=== PATIENT | female | born 1995 | race Caucasian/White ===

== ENCOUNTER 2023-05-02 09:36 | Emergency (ER) | payer OTHER, SELFPAY ==
[2023-05-02 09:58] VITALS: BP 140/84; PULSE 95; RESP 20; TEMP 37.1; O2SAT 100; BMI 52.5
[2023-05-02 10:50] LABS: IDNOW Serial# 58CA691E; Strep A Nucleic Acid Positive (Negative)
--- NOTE | 2023-05-02 10:56 | ED_ITS ---
HPI - General Adult General Chief complaint: Upper Respiratory Symptoms Stated complaint: Sore throat Time Seen by Provider: 05/02/23 10:55 Source: patient Mode of arrival: ambulatory Limitations: no limitations History of Present Illness HPI narrative: Patient is a 28 year old assigned female at with no reported medical history presenting to the emergency department today with a sore throat. Patient states that over the last 6 days she has had a sore throat. Patient denies any dizziness, lightheadedness, abdominal pain, nausea, vomiting, fever, chills, blurry vision, double vision, loss of vision, chest pain, difficulty breathing, shortness of breath, back pain, night sweats, pain with urination, increased urinary frequency, increased urinary urgency, blood in her urine or stool, syncope or a near syncopal episode, recent trauma or falls, bowel incontinence, bladder incontinence, bowel retention, bladder retention, or any other complaints at this time. Onset (ago): day(s) (6) Severity: mild Severity scale (1-10): 3 Quality: aching Pain Consistency: constant Relieving factors: none Exacerbating factors: none Associated symptoms: denies other symptoms Treatments prior to arrival: none Related Data Previous Rx's Medication Instructions Recorded penicillin V potassium 500 mg 500 mg PO BID 10 days #20 tabs 05/02/23 tablet Allergies Allergy/AdvReac Type Severity Reaction Status Date / Time SEAFOOD Allergy Unknown RASH Uncoded 05/02/23 10:00 Review of Systems Constitutional: Constitutional: Reports no additional constitutional complaints, Denies chills, Denies fever(s) and Denies night sweats Eyes: Eyes: Reports no additional eye complaints, Denies blurry vision, Denies change in vision, Denies diplopia, Denies eye discharge, Denies loss of vision and Denies eye pain ENT: Denies dizziness and Reports sore throat Cardiovascular: Cardiovascular: Reports no additional cardiovascular complaints, Denies chest pain, Denies lightheadedness, Denies Loss of Consciousness and Denies dyspnea Respiratory: Respiratory: Reports no additional respiratory complaints and Denies dyspnea Gastrointestinal: Gastrointestinal: Reports no additional gastrointestinal complaints, Denies abdominal pain, Denies melena, Denies hematochezia, Denies change in bowel habits and Denies change in stool character Genitourinary: Genitourinary: Denies hematuria, Denies urinary frequency, Denies dysuria, Denies urinary incontinence, Denies urinary hesitancy and Denies urinary urgency Musculoskeletal: Musculoskeletal: Reports no additional musculoskeletal complaints, Denies numbness and Denies tingling Neurologic: Denies dizziness, Denies loss of vision, Denies numbness and Denies tingling Psychiatric: Psychiatric: Reports no additional psychiatric complaints Endocrine: Endocrine: Reports no additional endocrine complaints Hematologic/Lymphatic: Hematologic/Lymphatic: Reports no additional hematologic/lymphatic complaints Allergic/Immunologic: Allergic/Immunologic: Reports no additional allergic/immunologic complaints [facility] Past Medical History Attestation statement: The following information was validated with the patient. Source: old records reviewed and nursing notes reviewed Social History Social History Advance Directives: No Advance Directives Information Provided: No Physical Exam ED Vital Signs: Vital Signs - 24 hr 05/02/23 09:58 Temperature 98.8 F Pulse Rate 95 Respiratory Rate 20 Blood Pressure 140/84 H Pulse Oximetry 100 Oxygen Delivery Method Room Air BMI result Body Mass Index 52.5 Const General: cooperative, no acute distress, alert and awake Nutritional Appearance: well nourished Orientation/consciousness: patient oriented x3 Limitations: no limitations HENMT Head: Yes normal to inspection and Yes atraumatic Ears: hearing grossly normal bilaterally and external ears normal General nose exam: Normal external nose present, no nasal discharge noted and no epistaxis Face and sinus: Yes normal facial exam, No abrasion and No laceration Mouth: Normal oral and palatal mucosa present, no drooling and no muffled voice Throat: Yes abnormal tonsil (bilateral erythema and exudates) Eyes General: appearance normal, both eyes and all related structures Periorbital: periorbital findings normal Eyelids: Yes eyelids normal Conjunctivae: conjunctivae normal Pupils: Equal, round and reactive pupils present EOM: EOMs intact bilaterally Neck Neck: Yes normal visual inspection, Yes full ROM and Yes no lymphadenopathy Chest Chest palpation & inspection: normal inspection of the chest Resp Effort & Inspection: normal respiratory effort and able to speak in complete sentences GI Inspection: Yes normal to inspection Neuro General: patient oriented x3 and moves all extremities Cranial nerves: Yes Equal, round and reactive pupils present Cognition (Neuro): normal cognition Motor exam (neuro): 5/5 motor strength present throughout Sensory Exam: Normal double simultaneous stimulation for sensation Coordination: [id number] test normal Extrem General: Yes normal to inspection, Yes full ROM and Yes capillary refill normal Psych Appearance: grossly normal Mental Status: mental status grossly normal Affect: normal affect Attitude: cooperative Thought process: Normal thought process present Thought content: Normal thought content present Insight: Good insight present (Psych) Medical Decision Making Medical Decision Making [facility] Narrative: Patient is a 28 year old assigned female at with no reported medical history presenting to the emergency department today with a sore throat. Patient's physical exam was as noted in the physical exam portion of this note. Patient's COVID-19, influenza, and RSV tests were negative. Patient's strep test was positive. I explained my physical exam findings as well as all test results to the patient. I answered all questions asked by the patient. I stressed the importance of the patient taking her medication as prescribed. I stressed the importance of the patient following up with her primary care provider. I stressed the importance of the patient returning to the emergency department immediately if her symptoms were to worsen or if she were to develop any dizziness, shortness of breath, difficulty breathing, chest pain, blurry vision, loss of vision, nausea, vomiting, abdominal pain, fever, chills, back pain, or any other complaints. Patient verbalized agreement and understanding with this treatment plan and discharge. Differential Diagnosis Differential Diagnoses: The differential diagnosis associated with the presentation includes COVID-19 Influenza RSV Strep pharyngitis Pharyngitis Admission/Observation Consideration of admission/observation: Escalation of care including admission/observation considered Patient would have been admitted to the hospital had her work up had any findings where hospital admission was appropriate and her clinical presentation warranted hospital admission. Lab Data [facility] Lab Attestation statement: I reviewed the patient's lab results. My interpretation of these results are in the MDM Rationale portion of this note. Labs: Lab Results 05/02/23 Range/Units 10:38 Influenza Type A (PCR) NEGATIVE (Negative) Influenza Type B (PCR) NEGATIVE (Negative) RSV RNA Qual (PCR) NEGATIVE (Negative) SARS-CoV-2 RNA (RT-PCR) NEGATIVE (Negative) S. pyogenes GrpA OLEG Positive A (Negative) Prescription Management I considered prescription management with: Antibiotic (patient prescribed an antibiotic for strep pharyngitis) Discharge Plan Discharge Clinical Impression: Strep pharyngitis Patient Disposition: Home, Self-Care Instructions: Strep Throat (DC) Additional Instructions: Take your antibiotic as prescribed. Follow up with your primary care provider. Return to the emergency department immediately if your symptoms worsen or if you develop any dizziness, shortness of breath, difficulty breathing, chest pain, blurry vision, loss of vision, nausea, vomiting, abdominal pain, fever, chills, back pain, or any other complaints. Prescriptions: New penicillin V potassium 500 mg tablet 500 mg PO BID 10 Days Qty: 20 0RF Referrals: [facility] [place] [facility] [place]] (Call to establish and follow up with a primary care provider. If you already have a primary care provider, please follow up with them.) [facility] [place] [facility] [Provider Group] (Call to establish and follow up with a primary care provider. If you already have a primary care provider, please follow up with them.) [facility] [place] [facility] [Provider Group] (Call to establish and follow up with a primary care provider. If you already have a primary care provider, please follow up with them.) Interventions: ED Discharge Assessment Last Done: 05/02/23 11:01 Discharge Date/Time: 05/02/23 11:01 Print Language: Italian
[2023-05-02 11:21] LABS: Influenza A PCR NEGATIVE (Negative); Influenza B PCR NEGATIVE (Negative); Resp Syncy Virus RNA Qual PCR NEGATIVE (Negative); SARS COV2 PCR INHOUSE NEGATIVE (Negative)
== END 2023-05-02 11:01 | disposition home or self-care (01) ==
PROVIDERS: Physician Assistant Medical; Emergency Provider Emergency Medicine
DX: J02.0 Streptococcal pharyngitis (principal); Z11.52 Encounter for screening for COVID-19; Z20.828 Contact with and (suspected) exposure to other viral communicable diseases
CPT/HCPCS: 0241U; 87651; 99282; 99283

== ENCOUNTER 2023-09-04 11:29 | Emergency (ER) | payer OTHER, SELFPAY ==
[2023-09-04 11:32] VITALS: BP 137/72; PULSE 92; RESP 16; TEMP 37; O2SAT 97; BMI 47.2
--- NOTE | 2023-09-04 11:40 | ED_ITS ---
HPI - General Adult General Chief complaint: Allergic Reaction Stated complaint: allergic reaction ? throat swelling Time Seen by Provider: 09/04/23 13:19 Source: patient, RN notes reviewed and old records reviewed Mode of arrival: ambulatory Limitations: no limitations History of Present Illness ED Provider: Rex MATHIS narrative: 28-year-old female presents for evaluation of tightness in her throat and itching all over her body. Her symptoms started about 30 minutes prior to arrival She does have an allergy to seafood listed in her chart. 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 ? She is concerned that she may have inhaled something She reports that she feels mucus in the back of her throat but is not having any trouble breathing or swallowing She denies any history of asthma or COPD Related Data Previous Rx's ?Medication ?Instructions ?Recorded penicillin V potassium 500 mg 500 mg PO BID 10 days #20 tabs 05/02/23 tablet prednisone 20 mg tablet 40 mg (2 x 20 mg) PO DAILY #10 tabs 09/04/23 Allergies Allergy/AdvReac Type Severity Reaction Status Date / Time SEAFOOD Allergy Mild RASH Uncoded 09/04/23 11:35 Review of Systems Constitutional: Constitutional: Denies body ache(s), Denies chills and Denies fever(s) ENT: Denies sore throat Comments: Reports tightness in throat Cardiovascular: Cardiovascular: Denies dyspnea Respiratory: Respiratory: Reports cough and Denies dyspnea Gastrointestinal: Gastrointestinal: Denies abdominal pain, Denies nausea and Denies vomiting Musculoskeletal: Musculoskeletal: Denies back pain Integumentary/Breasts: Skin/Breast: Reports pruritus and Denies rash PMFSH Social History Social History Advance Directives: No Physical Exam ED Vital Signs: Vital Signs - 24 hr 09/04/23 11:32 Temperature 98.6 F Pulse Rate 92 Respiratory Rate 16 Blood Pressure 137/72 Pulse Oximetry 97 Oxygen Delivery Method Room Air BMI result Body Mass Index 47.2 Const General: healthy appearing, comfortable, no acute distress, alert and awake Nutritional Appearance: well nourished Orientation/consciousness: patient oriented x3 HENMT Other: No oral, perioral, retropharyngeal edema Head: Yes normocephalic and Yes atraumatic Throat: Yes posterior oropharynx normal Eyes Eyelids: Yes eyelids normal Conjunctivae: conjunctivae normal Sclerae: sclerae normal Corneas: corneas normal Pupils: Equal, round and reactive pupils present EOM: EOMs intact bilaterally Neck Other: No anterior neck swelling Neck: Yes full ROM Resp Other: No tracheal stridor, no stridor or wheezing on auscultation of the lung loyd Effort & Inspection: normal respiratory effort, able to speak in complete sentences, no audible wheezes and not labored Auscultation: clear to auscultation bilaterally Cardio Rate: regular rate Rhythm: regular rhythm Skin General skin exam: no rashes or lesions noted and elasticity normal Neuro General: patient oriented x3 Cranial nerves: Yes Equal, round and reactive pupils present and Yes Bilaterally intact EOM present Cognition (Neuro): normal cognition Extrem Other: Moving all extremities well without any obvious deformities Course Course Course Narrative: RME, this is a rapid medical exam performed by Lazaro Goodman please refer to primary provider for complete H&P- 28-year-old female presents for evaluation of tightness in her throat, an itching throughout her body. She denies any known food or drug allergies. 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 She was at work this morning when her symptoms started about 30 minutes ago. On exam she has no rash, urticaria, no stridor or wheezing. Airway is widely patent, there is no oral, perioral or retropharyngeal edema. We will treat with Benadryl 50 mg and observe Reevaluation(s) Reevaluation #1: Patient presents reporting her symptoms have resolved, her exam is unchanged, she has no objective findings whatsoever. The patient be discharged with Benadryl and prednisone. Time: 13:36 Medications Administered Discontinued Medications Generic Name Dose Route Start Last Admin Trade Name Freq PRN Reason Stop Dose Admin Diphenhydramine HCl 50 mg 09/04/23 11:40 09/04/23 11:42 Diphenhydramine Hcl 25 Mg Capsule PO 09/04/23 11:41 50 mg ONCE ONE Administration Medical Decision Making Medical Decision Making MDM Narrative: 28-year-old female presents for evaluation of a tightness sensation in her throat. She has in no distress whatsoever. There is no evidence of angioedema, no urticaria, no rashes. She was given Benadryl 50 mg p.o.. She is observed for just under 2 hours. The patient presents to the she I stress reports that her symptoms have resolved. Differential Diagnosis Differential Diagnoses: The differential diagnosis associated with the presentation includes Urticaria Allergic reaction Angioedema Chemical pneumonitis Discharge Plan Discharge Clinical Impression: Acute chemical pneumonitis Patient Disposition: Home, Self-Care Instructions: Pneumonitis (ED) Additional Instructions: It is likely that your symptoms are related to something that you inhaled given your work setting. It is still possible that you had an allergic reaction Take prednisone 40 mg daily for the next 5 days Take Benadryl 25 mg every 4-6 hours until your symptoms are completely resolved Return for new or worsening symptoms If this happens again I recommend being seen by an stage settings painter for allergy testing Prescriptions: New prednisone 20 mg tablet 40 mg PO DAILY Qty: 10 0RF No Action penicillin V potassium 500 mg tablet 500 mg PO BID 10 Days Qty: 20 0RF Stand Alone Forms: Work/School Release Discharge Date/Time: 09/04/23 13:25 Print Language: Greenlandic
[2023-09-04] MEDS: diphenhydrAMINE HCL 25 MG CAPSULE 50 MG PO (11:42)
== END 2023-09-04 13:25 | disposition home or self-care (01) ==
PROVIDERS: Emergency Provider Emergency Medicine
DX: J68.0 Bronchitis and pneumonitis due to chemicals, gases, fumes and vapors (principal); L29.9 Pruritus, unspecified
CPT/HCPCS: 99281; 99283

== ENCOUNTER 2023-09-27 08:46 | Emergency (ER) | payer OTHER, SELFPAY ==
--- NOTE | ~2023-09-27 | XR_ITS ---
EXAMINATION: XR KNEE, RIGHT CLINICAL INFORMATION: Right knee pain. COMPARISON: None available. TECHNIQUE: Two views of the right knee. FINDINGS: Alignment is anatomic. Joint spaces are maintained. No significant joint effusion. XR/XR knee RT 2V IMPRESSION: No acute abnormality.
[2023-09-27 08:54] VITALS: BP 134/67; PULSE 81; RESP 16; TEMP 36.2; O2SAT 95; BMI 48.2
--- NOTE | 2023-09-27 09:17 | ED.LOWEXIN ---
HPI - Extremity Injury (Lower) General Chief Complaint: Extremity Injury, Lower Stated Complaint: Knee pain Time Seen by Provider: 09/27/23 08:56 Source: patient Mode of arrival: ambulatory Limitations: no limitations History of Present Illness ED Provider: DR. Cline HPI Narrative: 28-year-old female presented with right knee pain for 1 year that is getting worse over the past 2-3 weeks, no injury or trauma to the knee, pain is more when she twists her right knee pain is unbearable when patient drives and switch between gas and brake. No fever, no chills, still able to bear weight on right knee. Related Data Previous Rx's ?Medication ?Instructions ?Recorded penicillin V potassium 500 mg 500 mg PO BID 10 days #20 tabs 05/02/23 tablet prednisone 20 mg tablet 40 mg (2 x 20 mg) PO DAILY #10 tabs 09/04/23 ibuprofen 600 mg tablet 600 mg PO Q8H PRN pain #20 tabs 09/27/23 Allergies Allergy/AdvReac Type Severity Reaction Status Date / Time SEAFOOD Allergy Mild RASH Uncoded 09/27/23 08:55 Review of Systems Review of Systems: All other systems are reviewed and are negative Constitutional: Reports as per HPI and Reports no additional constitutional complaints Eyes: Reports as per HPI and Reports no additional eye complaints Reports system reviewed and no additional complaints, except as documented Cardiovascular: Reports as per HPI and Reports no additional cardiovascular complaints Respiratory: Reports as per HPI and Reports no additional respiratory complaints Gastrointestinal: Reports as per HPI and Reports no additional gastrointestinal complaints Genitourinary: Reports no additional female genitourinary complaints Musculoskeletal: Reports no additional musculoskeletal complaints Skin/Breast: Reports system reviewed and no additional complaints, except as docu Psychiatric: Reports no additional psychiatric complaints Endocrine: Reports no additional endocrine complaints Hematologic/Lymphatic: Reports no additional hematologic/lymphatic complaints Allergic/Immunologic: Reports no additional allergic/immunologic complaints Reports system reviewed and no additional complaints, except as documented and Reports Abnormal speech present [facility] Social History Social History Advance Directives: No Advance Directives Information Provided: No Physical Exam Vital Signs: Vital Signs: Last Vital Signs Temp 97.1 F 09/27/23 08:54 Pulse 81 09/27/23 08:54 Resp 16 09/27/23 08:54 BP 134/67 09/27/23 08:54 Pulse Ox 95 09/27/23 08:54 O2 Del Method Room Air 09/27/23 08:54 BMI result Body Mass Index 48.2 Vital signs have been reviewed and appear to be correct. Blood pressure elevated. Heart rate normal. Respiratory rate normal. Temperature normal. Oxygen saturation normal. Appearance: Obese, Alert. Oriented X3. No acute distress. Head: Normal external exam. Normocephalic. Atraumatic. No Vicente signs noted. No raccoon eyes noted Eyes: PERRLA. EOMI. Conjunctiva and sclera normal. Eyelids normal. ENT: TM's Normal. Pharynx normal. Uvula midline. Moist mucous membranes. No trismus noted. No drooling noted. No muffled voice noted. Neck: Normal inspection. Neck supple. FROM. No adenopathy. Thyroid Normal. No meningeal signs. No neck mass noted. CVS: Normal heart rate and rhythm. Heart sound normal. No murmurs noted. Pulses normal throughout. Respiratory: No respiratory distress. Painless inspiration. Breath sounds normal. No wheezes/rales/rhonchi noted. Chest nontender. No accessory muscle usage noted or decreased air movement noted. Abdomen: Soft and nontender. Bowel sounds normal in all 4 quadrants. No distention noted. No organomegaly noted. No visible injury noted. Back: No CVA tenderness. Full range of motion noted. Skin: Skin warm and dry. Normal skin color. Normal skin turgor. No rashes/lesions/lacerations noted. Extremities: Right knee exam: No knee swelling, no deformity, no step-off, no ligamentous laxity, able to ambulate with small limp Neuro: Oriented X 3. Cranial nerve exam: II-XII are grossly intact No motor deficit. No sensory deficit. Reflexes normal. Course Reevaluation(s) Reevaluation #1: Right knee pain for 1 year worsening over the last few weeks, exam is remarkable for diffuse tenderness but normal ligamentous exam, normal x-ray. Will provide knee immobilizer, NSAIDs if needed for pain, follow-up with orthopedic. Time: 09:21 Medical Decision Making Differential Diagnosis Differential Diagnoses: The differential diagnosis associated with the presentation includes (Right knee fracture, dislocation, contusion, ligamentous injury, septic joint) Admission/Observation Consideration of admission/observation: Escalation of care including admission/observation considered Independent Interpretation I performed an independent interpretation of an: Plain X-Ray (Right knee x-ray: No acute fracture or dislocation.) Radiology Impression Discussion of test interpretation with radiology: I have reviewed the radiologist's reading. Discharge Plan Discharge Clinical Impression: Knee pain, right Patient Disposition: Home, Self-Care Instructions: Arthralgia (ED) Prescriptions: New ibuprofen 600 mg tablet 600 mg PO Q8H PRN (Reason: pain) Qty: 20 0RF No Action penicillin V potassium 500 mg tablet 500 mg PO BID 10 Days Qty: 20 0RF prednisone 20 mg tablet 40 mg PO DAILY Qty: 10 0RF Referrals: Onesimo Geller MD [Physician] - Print Language: Algerian
--- NOTE | 2023-09-27 09:36 | PC.NURSE ---
patient a&ox3, awaiting radiology for xray, will continue to monitor
--- NOTE | 2023-09-27 11:21 | PC.NURSE ---
Spoke with Dr. Cline- instead of an knee immobilizer pt will have her knee ismael wrapped. this nurse wrapped pts knee, pt tolerated well.
[2023-09-27 11:44] VITALS: BP 102/50; PULSE 85; RESP 18; TEMP 36.2; O2SAT 96
== END 2023-09-27 11:45 | disposition home or self-care (01) ==
PROVIDERS: Emergency Provider Emergency Medicine
DX: M25.561 Pain in right knee (principal)
CPT/HCPCS: 73560; 99283

== ENCOUNTER 2023-10-15 08:58 | Emergency (ER) | payer OTHER, SELFPAY ==
[2023-10-15 08:59] VITALS: BP 106/69; PULSE 82; RESP 16; TEMP 37; O2SAT 97; BMI 52.6
--- NOTE | 2023-10-15 11:05 | ED.EXTPRO ---
HPI - Extremity Problem General Chief complaint: Extremity Problem Stated complaint: R knee inj Time Seen by Provider: 10/15/23 10:46 Source: patient, RN notes reviewed and old records reviewed Mode of arrival: ambulatory History of Present Illness ED Provider: Stacy Roe PA-C HPI Narrative: 28-year-old female with no significant past medical history presenting to the ED complaining of right knee pain x1 year worsening over the past few months. States pain is exacerbated after going up and down the stairs. Has not taking ibuprofen without relief. Denies taking anything today. Denies recent injury, trauma or fall, numbness/tingling, calf pain Related Data Previous Rx's ?Medication ?Instructions ?Recorded penicillin V potassium 500 mg 500 mg PO BID 10 days #20 tabs 05/02/23 tablet prednisone 20 mg tablet 40 mg (2 x 20 mg) PO DAILY #10 tabs 09/04/23 ibuprofen 600 mg tablet 600 mg PO Q8H PRN pain #20 tabs 09/27/23 diclofenac sodium 1 % topical gel 2 g topical QID #100 grams 10/15/23 naproxen 500 mg tablet 500 mg PO BID PRN pain 10 days #20 10/15/23 tabs Allergies Allergy/AdvReac Type Severity Reaction Status Date / Time SEAFOOD AdvReac Mild Rash Uncoded 10/15/23 09:03 Review of Systems Review of Systems: Constitutional: No Fever, No Chills ENT/Mouth: No Ear Pain, No Nasal Congestion, No sore throat, No Rhinorrhea, No Swallowing Difficulty Cardiovascular: No Chest Pain, No SOB Respiratory: No Cough, No Sputum, No Wheezing Gastrointestinal: No Nausea, No Vomiting, No Abdominal pain Musculoskeletal: +joint pain, No Myalgias, + Joint Swelling Skin: No Skin Lesions, No rash Neuro: No Weakness, No Numbness, No Paresthesias Yes all other systems are reviewed and are negative Constitutional: Constitutional: Reports as per [facility] Past Medical History Attestation statement: The following information was validated with the patient. Source: old records reviewed Social History Social History Advance Directives: No Advance Directives Information Provided: No Physical Exam Vital Signs: Vital Signs: Last Vital Signs Temp 98.6 F 10/15/23 08:59 Pulse 82 10/15/23 08:59 Resp 16 10/15/23 08:59 BP 106/69 10/15/23 08:59 Pulse Ox 97 10/15/23 08:59 O2 Del Method Room Air 10/15/23 08:59 BMI result Body Mass Index 52.6 Const: General: cooperative, healthy appearing and no acute distress Orientation/consciousness: patient oriented x3 Limitations: no limitations HEENT: Head: Yes normal to inspection and Yes atraumatic Ears: hearing grossly normal bilaterally General nose exam: Normal external nose present Face and sinus: Yes normal facial exam Eyes: General: appearance normal, both eyes and all related structures EOM: EOMs intact bilaterally Neck: Neck: Yes normal visual inspection and Yes no meningeal signs Resp: Effort & Inspection: normal respiratory effort and no respiratory distress Cardio: Rate: regular rate Skin: Rashes: no rashes Wounds: no wounds Neuro: General: patient oriented x3, tone normal and no meningeal signs Cranial nerves: Yes CN's II-XII intact bilaterally Gait exam (Neuro): Normal gait present Extrem: Other: Right knee without appreciable deformity. No erythema/warmth. Diffusely tender to palpation. Limited ROM secondary to pain. No calf tenderness. Neurovascularly intact distally General: Yes normal to inspection Course Course Course Narrative: BELLO wrap applied Results discussed with patient including worrisome signs and symptoms and strict return precautions, and when to return to the emergency department. They verbalized understanding and feel safe for discharge at this time. Medical Decision Making Medical Decision Making [facility] Narrative: 28-year-old female with no significant past medical history presenting to the ED complaining of right knee pain x1 year worsening over the past few months. On exam vital signs stable, NAD, nontoxic appearing, physical exam as noted above. Concern for meniscal/tendon/ligamental injury vs strain. Low suspicion for DVT, no evidence of septic joint/arthritis. Unlikely fracture Patient had x-rays on 09/26 that were unremarkable Plan: pain control, orthopedic follow-up Patient admits she has orthopedic follow-up this week Please refer to course for remaining clinical decision making, interpretation of labs/imaging results, and discussions with consultants and/or family members. Differential Diagnosis Differential Diagnoses: The differential diagnosis associated with the presentation includes As above External Record Review External record reviewed: Inpatient record, Office record, Outpatient record, Prior outpatient labs, Prior outpatient radiology, Primary care record and Outside ED record Tests considered The following testing was considered but not selected: As above Prescription Management I considered prescription management with: Pain Medication Discharge Plan Discharge Clinical Impression: Chronic knee pain Patient Disposition: Home, Self-Care Instructions: Arthralgia (ED) Additional Instructions: Naproxen as an anti-inflammatory/pain medicine, take with food Diclofenac gel is a topical anti-inflammatory/pain medication, apply to painful joint In addition take Tylenol Follow-up with Orthopedics and your doctor Ice and elevate Rest Use Bello wrap for comfort and stability Prescriptions: New naproxen 500 mg tablet 500 mg PO BID PRN (Reason: pain) 10 Days Qty: 20 0RF diclofenac sodium 1 % gel 2 g topical QID Qty: 100 0RF Rx Instructions: apply to single elbow, wrist or hand; for hand includes palm/fingers/back of hand No Action penicillin V potassium 500 mg tablet 500 mg PO BID 10 Days Qty: 20 0RF prednisone 20 mg tablet 40 mg PO DAILY Qty: 10 0RF ibuprofen 600 mg tablet 600 mg PO Q8H PRN (Reason: pain) Qty: 20 0RF Referrals: [facility] [Provider Group] Stand Alone Forms: Work/School Release Print Language: Azeri
[2023-10-15 11:33] VITALS: BP 115/73; PULSE 77; RESP 16; TEMP 36.5; O2SAT 98
[2023-10-15] MEDS: Ketorolac Tromethamine 30 MG/ML VIAL IM (11:42)
[2023-10-15 12:03] VITALS: BP 115/73; PULSE 77; RESP 16; TEMP 36.5; O2SAT 98
== END 2023-10-15 11:50 | disposition home or self-care (01) ==
PROVIDERS: Emergency Provider Emergency Medicine
DX: G89.29 Other chronic pain (principal); M25.561 Pain in right knee
CPT/HCPCS: 96372; 99283; 99284; J1885

== ENCOUNTER 2023-10-25 13:34 | Outpatient (AMB) | payer OTHER, SELFPAY ==
--- NOTE | 2023-10-25 13:38 | A.OFFVIS_ITS ---
Vital Signs 10/25/23 13:39 Height 5 ft 1 in Weight 278 lb BMI 52.5 Intake Visit Reasons: [employer]-Right knee pain/swelling Intake Note: Pat is a 28 year old female who presents today as a new patient with complaints of sharp right knee pain and swelling. Patient states that she has been having this problem for about a year but the symptoms are worsening. Patient states that she has been in the ER recently for the pain and xrays were done. The patient states that most of the pain is along the medial aspect of her knee. She states that her right knee will give out several times per day. She has tried Tylenol, ibuprofen, Naprosyn and diclofenac topical cream which gave her minimal relief. She has also done physical therapy exercises which aggravated her pain. Allergies SEAFOOD Adverse Reaction (Mild, Uncoded 10/15/23 09:03) Rash Medication List - Last Reconciled 10/25/23 by Lincoln Null MD diclofenac sodium 1% 2 grams topical QID ibuprofen 600 mg PO Q8H PRN naproxen 500 mg PO BID PRN 10 days penicillin V potassium 500 mg PO BID 10 days prednisone 40 mg (2 x 20 mg) PO DAILY Physical Exam Vital Signs: BMI result Body Mass Index 52.5 Const Other: Well-nourished well-developed very friendly female awake alert and oriented x3 in no acute distress Extrem Other: Bilateral lower extremity examination shows good capillary refill, no skin lesions noted, normal sensation light touch Right knee examination shows a minimal effusion, minimal crepitus with range of motion, tenderness along her medial joint line, positive Edwin's test, no instability Results Reviewed Results Reviewed: Standing full weight-bearing x-rays of the patient's right knee show minimal joint space narrowing, no acute bony abnormalities Assessment & Plan Assessment & Plan (1) Knee pain, right: Code(s): M25.561 - Pain in right knee Category: Medical Plan Ms. Terri Bar presents with progressively worsening right knee pain and mechanical symptoms most likely due to a tear of her medial meniscus. Thus, I will send the patient for an MRI of her right knee for further evaluation. I will see her back once the MRI is completed to discuss the findings and treatment options. She will contact me prior to that time should any questions or concerns arise. I spent 21 minutes in reviewing the patient's records and imaging studies, brian yanes the patient and documenting in the medical record. Orders: Orders MR knee RT wo con 10/25/23 M25.561 - Pain in right knee Coding Level of Care Code New Pt Level 3 (28050) Complex EM visit Add On G2211 Diagnoses Knee pain, right M25.561
[2023-10-25 13:39] VITALS: BMI 52.5
== END 2023-10-25 14:12 | disposition home or self-care (01) ==
PROVIDERS: Visit Provider Orthopaedic Surgery
DX: M25.561 Pain in right knee (principal)
CPT/HCPCS: 99203; G2211

== ENCOUNTER → 2023-10-25 13:34 | Outpatient (BNVA) | payer OTHER, SELFPAY | PROVIDERS: Visit Provider Orthopaedic Surgery | DX: M25.561 Pain in right knee (principal) | CPT/HCPCS: 99202 ==

== ENCOUNTER 2023-11-20 18:18 | Outpatient (REF) | payer OTHER, SELFPAY ==
--- NOTE | ~2023-11-20 | MR_ITS ---
EXAMINATION: MR KNEE WITHOUT CONTRAST, RIGHT CLINICAL INFORMATION: Right knee pain COMPARISON: Radiographs 09/27/2023 TECHNIQUE: MRI of the knee without contrast was performed using routine sequences on a high-field scanner. FINDINGS: MENISCI: Medial Meniscus: Intact Lateral Meniscus: Intact LIGAMENTS: Cruciate: Intact Collateral: Intact EXTENSOR MECHANISM: Intact. Nonspecific edema of the suprapatellar quadriceps fat pad may reflect quadriceps tendinitis or fat pad impingement. ARTICULAR CARTILAGE/BONE: Patellofemoral Compartment: Normal Medial Compartment: Normal Lateral Compartment: Normal JOINT FLUID AND BURSAE: No significant joint effusion. MR/MR knee RT wo con IMPRESSION: 1. No meniscal tear. 2. Nonspecific edema of the suprapatellar quadriceps fat pad may reflect quadriceps tendinitis or fat pad impingement. Electronically signed by: Isiah Agustin MD 11/21/2023 11:45 AM EDT
== END 2023-11-20 18:19 | disposition home or self-care (01) ==
LOC: HO.MRI 18:18
PROVIDERS: Visit Provider Orthopaedic Surgery
DX: M25.561 Pain in right knee (principal)
CPT/HCPCS: 73721

== ENCOUNTER 2023-12-13 11:26 | Outpatient (AMB) | payer OTHER, SELFPAY ==
[2023-12-13 11:28] VITALS: BMI 52.5
--- NOTE | 2023-12-13 11:28 | MHC.OFFVIS ---
Vital Signs 12/13/23 11:28 Height 5 ft 1 in Weight 278 lb BMI 52.5 Intake Visit Reasons: OV- Right Knee MRI review Intake Note: Pat is a 28 year old female who presents with complaints of mild intermittent discomfort in her right knee. She describes her discomfort as achy in nature. She denies any locking or giving way. She does take Tylenol and naproxen which gave her fairly good relief. Allergies SEAFOOD Adverse Reaction (Mild, Uncoded 10/15/23 09:03) Rash Medication List - Last Reconciled 12/13/23 by Lincoln Null MD diclofenac sodium 1% 2 grams topical QID ibuprofen 600 mg PO Q8H PRN naproxen 500 mg PO BID PRN 10 days penicillin V potassium 500 mg PO BID 10 days prednisone 40 mg (2 x 20 mg) PO DAILY Physical Exam Vital Signs: BMI result Body Mass Index 52.5 Const Other: Well-nourished well-developed very friendly female awake alert and oriented x3 in no acute distress Extrem Other: Bilateral lower extremity examination shows good capillary refill, no skin lesions noted, normal sensation light touch Right knee examination shows a minimal effusion, minimal crepitus with range of motion, negative Edwin's test, no instability Results Reviewed Results Reviewed: MRI of the patient's right knee shows no significant degenerative changes, no ligamentous injury, no evidence of meniscus tearing, mild quadriceps tendinopathy Assessment & Plan Assessment & Plan (1) Knee pain, right: Code(s): M25.561 - Pain in right knee Category: Medical Plan Pat presents with intermittent right knee discomfort due to quadriceps tendinitis. I had a lengthy discussion with the patient regarding the treatment options. At this point the patient's symptoms are tolerable to her. Activity modifications were discussed at length with the patient. She will follow up with me on an as-needed basis should her symptoms worsen in any way. Feel free to call me at any time should questions regarding her orthopedic management arise. I spent 22 minutes in reviewing the patient's records and imaging studies, seeing the patient and documenting in the medical record. Coding Level of Care Code Est Pt Level 3 (17646) Complex EM visit Add On G2211 Diagnoses Knee pain, right M25.561
== END 2023-12-13 11:46 | disposition home or self-care (01) ==
PROVIDERS: Visit Provider Orthopaedic Surgery
DX: M25.561 Pain in right knee (principal)
CPT/HCPCS: 99212; G2211

== ENCOUNTER → 2023-12-13 11:26 | Outpatient (BNVA) | payer OTHER, SELFPAY | PROVIDERS: Visit Provider Orthopaedic Surgery | DX: M25.561 Pain in right knee (principal) | CPT/HCPCS: 99212 ==

== ENCOUNTER 2024-01-07 12:16 | Emergency (ER) | payer OTHER, SELFPAY ==
[2024-01-07 12:30] VITALS: BP 101/68; PULSE 86; RESP 16; TEMP 37.2; O2SAT 94; BMI 44.0
--- NOTE | 2024-01-07 12:30 | ED_ITS ---
HPI - General Adult General Chief complaint: Abdominal Pain Stated complaint: Pain R side Source: patient Mode of arrival: ambulatory Limitations: no limitations History of Present Illness ED Provider: Gricel Blank PA-C HPI narrative: Patient is a 28 year old assigned female at with no reported medical history presenting to the emergency department today with right lower quadrant abdominal / groin pain. Patient states that her right groin has been worsening and she feels as though something is going to explode . Patient denies any dizziness, lightheadedness, nausea, vomiting, fever, chills, blurry vision, double vision, loss of vision, chest pain, difficulty breathing, shortness of breath, back pain, night sweats, pain with urination, increased urinary frequency, increased urinary urgency, blood in her urine or stool, syncope or a near syncopal episode, recent trauma or falls, bowel incontinence, bladder incontinence, or any other complaints at this time. Relieving factors: none Exacerbating factors: none Associated symptoms: denies other symptoms Treatments prior to arrival: none Related Data Previous Rx's ?Medication ?Instructions ?Recorded penicillin V potassium 500 mg 500 mg PO BID 10 days #20 tabs 05/02/23 tablet prednisone 20 mg tablet 40 mg (2 x 20 mg) PO DAILY #10 tabs 09/04/23 ibuprofen 600 mg tablet 600 mg PO Q8H PRN pain #20 tabs 09/27/23 diclofenac sodium 1 % topical gel 2 g topical QID #100 grams 10/15/23 naproxen 500 mg tablet 500 mg PO BID PRN pain 10 days #20 10/15/23 tabs Allergies Allergy/AdvReac Type Severity Reaction Status Date / Time seafood AdvReac Mild Rash Verified 01/08/24 09:15 Review of Systems 2 Constitutional: Constitutional: Reports no additional constitutional complaints, Denies chills, Denies fever(s) and Denies night sweats Eyes: Eyes: Reports no additional eye complaints, Denies blurry vision, Denies change in vision, Denies diplopia, Denies eye discharge, Denies loss of vision and Denies eye pain ENT: Denies dizziness Cardiovascular: Cardiovascular: Reports no additional cardiovascular complaints, Denies chest pain, Denies lightheadedness, Denies Loss of Consciousness and Denies dyspnea Respiratory: Respiratory: Reports no additional respiratory complaints and Denies dyspnea Gastrointestinal: Gastrointestinal: Reports no additional gastrointestinal complaints, Reports abdominal pain, Denies melena, Denies hematochezia, Denies change in bowel habits and Denies change in stool character Genitourinary: Genitourinary: Denies hematuria, Denies urinary frequency, Denies dysuria, Denies urinary incontinence, Denies urinary hesitancy and Denies urinary urgency Musculoskeletal: Musculoskeletal: Reports no additional musculoskeletal complaints, Denies numbness and Denies tingling Neurologic: Denies dizziness, Denies loss of vision, Denies numbness and Denies tingling Psychiatric: Psychiatric: Reports no additional psychiatric complaints Endocrine: Endocrine: Reports no additional endocrine complaints Hematologic/Lymphatic: Hematologic/Lymphatic: Reports no additional hematologic/lymphatic complaints Allergic/Immunologic: Allergic/Immunologic: Reports no additional allergic/immunologic complaints PMFSH Past Medical History Attestation statement: The following information was validated with the patient. Source: old records reviewed and nursing notes reviewed Social History Social History Advance Directives: No Advance Directives Information Provided: No Do you have a plan to hurt others: No Plan Physical Exam ED Vital Signs: BMI result Body Mass Index 44.0 Const General: cooperative, no acute distress, alert and awake Nutritional Appearance: well nourished Orientation/consciousness: patient oriented x3 Limitations: no limitations HENMT Head: Yes normal to inspection and Yes atraumatic Ears: hearing grossly normal bilaterally and external ears normal General nose exam: Normal external nose present, no nasal discharge noted and no epistaxis Face and sinus: Yes normal facial exam, No abrasion and No laceration Mouth: Normal oral and palatal mucosa present, no drooling and no muffled voice Eyes General: appearance normal, both eyes and all related structures Periorbital: periorbital findings normal Eyelids: Yes eyelids normal Conjunctivae: conjunctivae normal Pupils: Equal, round and reactive pupils present EOM: EOMs intact bilaterally Neck Neck: Yes normal visual inspection, Yes full ROM and Yes no lymphadenopathy Chest Chest palpation & inspection: normal inspection of the chest Resp Effort & Inspection: normal respiratory effort and able to speak in complete sentences GI Inspection: Yes normal to inspection Neuro General: patient oriented x3 and moves all extremities Cranial nerves: Yes Equal, round and reactive pupils present Cognition (Neuro): normal cognition Extrem General: Yes normal to inspection, Yes full ROM and Yes capillary refill normal Psych Appearance: grossly normal Mental Status: mental status grossly normal Affect: normal affect Attitude: cooperative Thought process: Normal thought process present Thought content: Normal thought content present Insight: Good insight present (Psych) Course Course Course Narrative: RME performed by Gricel Blank PA-C. Patient is a 28 year old assigned female at presenting to the emergency department with right groin pain. Patient states that she has right groin pain that feels as though something is going to explode . Detailed physical exam and review of systems are deferred to the wire turning machine operator. Labs ordered. Patient placed back in the waiting room pending room availability and results. Medical Decision Making Medical Decision Making MDM Narrative: Patient is a 28 year old assigned female at with no reported medical history presenting to the emergency department today with abdominal pain. Patient's limited physical exam performed in triage was unremarkable. Patient's blood work was unremarkable. Patient left the department without completing treatment. Patient left the department before myself or any of the other emergency department clinicians could explain to or review with the patient; physical exam findings, test results, need or lack there of for additional testing, need or lack there of for a procedure to be performed, need or lack there of for hospital admission / transfer, need or lack there of for prescription medication, treatment options, or a treatment plan. Differential Diagnosis Differential Diagnoses: The differential diagnosis associated with the presentation includes Abdominal pain Admission/Observation Consideration of admission/observation: Escalation of care including admission/observation considered Patient would have been admitted to the hospital had she completed her work up and it had any findings where hospital admission was appropriate, her clinical presentation warranted hospital admission, had myself or any other emergency supervisor [facility] department had the ability to discuss need or lack there of for hospital admission, and the patient hadn't left the department without completing treatment. Lab Data [facility] Lab Attestation statement: I reviewed the patient's lab results. My interpretation of these results are in the [facility] Rationale portion of this note. 01/07/24 12:56 01/07/24 12:56 Labs: Lab Results 01/07/24 Range/Units 12:56 WBC 8.9 (4.8-10.8) X10*3/uL RBC 4.85 (4.20-5.50) X10*6/uL Hgb 12.1 (12.0-16.0) g/dl Hct 38.1 (37.0-47.0) % MCV 78.6 L (80.0-98.0) fL MCH 24.9 L (27.0-33.0) pg MCHC 31.8 (31.0-35.0) g/dl RDW 15.5 (11.0-16.0) % Plt Count 291 (160-400) X10*3/uL MPV 10.6 (9.4-12.3) fL Immature Gran % (Auto) 0.3 (0.0-0.4) % Neut % (Auto) 73.1 H (45-73) % Lymph % (Auto) 20.2 (20-40) % Ripley % (Auto) 5.3 (2-11) % Eos % (Auto) 0.5 (0-4) % Baso % (Auto) 0.6 (0-2) % Lymph # (Auto) 1.8 (1.2-4.9) X10*3/uL Ripley # (Auto) 0.5 (0.1-1.2) X10*3/uL Eos # (Auto) 0.0 (0.0-0.4) X10*3/uL Baso # (Auto) 0.1 (0.0-0.2) X10*3/uL Abs Immat Gran (auto) 0.03 (0.00-0.03) X10*3/uL Absolute Neuts (auto) 6.5 (2.0-8.3) x10*3/uL Absolute Nucleated RBC 0.000 (0.0-0.012) X10*3/uL Nucleated RBC % (auto) 0.0 (0.0-0.2) /100WBC Sodium 139 (135-145) mmol/L Potassium 4.1 (3.3-5.1) mmol/L Chloride 105 (96-108) mmol/L Carbon Dioxide 25 (22-29) mmol/L Anion Gap 13 (12-20) BUN 11 (9-16) mg/dL Creatinine 0.70 (0.5-1.4) mg/dL Estim Creat Clear Calc 159.1 Estimated GFR > 60 Random Glucose 91 (60-115) mg/dL Calcium 10.0 (8.4-10.2) mg/dL Magnesium 2.0 (1.6-2.6) mg/dL Total Bilirubin 0.4 (0.0-1.0) mg/dL AST 16 (5-31) U/L ALT 15 (0-31) U/L Alkaline Phosphatase 49 (39-117) U/L Total Protein 8.1 H (6.5-8.0) g/dL Albumin 4.1 (3.5-5.0) g/dL Beta HCG, Quant < 2 mIU/mL Influenza Type A (PCR) NEGATIVE (Negative) Influenza Type B (PCR) NEGATIVE (Negative) RSV RNA Qual (PCR) NEGATIVE (Negative) SARS-CoV-2 RNA (RT-PCR) NEGATIVE (Negative) Discharge Plan Discharge Clinical Impression: Abdominal pain Patient Disposition: Left W/O Completing Treatment Prescriptions: No Action penicillin V potassium 500 mg tablet 500 mg PO BID 10 Days Qty: 20 0RF prednisone 20 mg tablet 40 mg PO DAILY Qty: 10 0RF ibuprofen 600 mg tablet 600 mg PO Q8H PRN (Reason: pain) Qty: 20 0RF naproxen 500 mg tablet 500 mg PO BID PRN (Reason: pain) 10 Days Qty: 20 0RF diclofenac sodium 1 % gel 2 g topical QID Qty: 100 0RF Rx Instructions: apply to single elbow, wrist or hand; for hand includes palm/fingers/back of hand Discharge Date/Time: 01/07/24 20:34
[2024-01-07 13:00] LABS: MANUAL DIFF FLAG NO
[2024-01-07 13:01] LABS: Basophils Absolute Auto 0.1 X10*3/uL (0.0-0.2); Basophils Percent Auto 0.6 % (0-2); Eosinophils Percent Auto 0.5 % (0-4); Hematocrit 38.1 % (37.0-47.0); Hemoglobin 12.1 g/dl (12.0-16.0); Imm Gran Abs Auto 0.03 X10*3/uL (0.00-0.03); Imm Gran Pct Auto 0.3 % (0.0-0.4); Lymphocytes Absolute Auto 1.8 X10*3/uL (1.2-4.9); Lymphocytes Percent Auto 20.2 % (20-40); Mean Corpuscular HGB Conc 31.8 g/dl (31.0-35.0); Mean Corpuscular Hemoglobin 24.9 pg (27.0-33.0); Mean Corpuscular Volume 78.6 fL (80.0-98.0); Mean Platelet Volume 10.6 fL (9.4-12.3); Monocytes Absolute Auto 0.5 X10*3/uL (0.1-1.2); Monocytes Percent Auto 5.3 % (2-11); Neutrophils Absolute Auto 6.5 x10*3/uL (2.0-8.3); Neutrophils Percent Auto 73.1 % (45-73); Platelet Count 291 X10*3/uL (160-400); Red Blood Count 4.85 X10*6/uL (4.20-5.50); Red Cell Distribution Width 15.5 % (11.0-16.0); White Blood Count 8.9 X10*3/uL (4.8-10.8)
[2024-01-07 13:21] LABS: Alanine Aminotransferase 15 U/L (0-31); Albumin Level 4.1 g/dL (3.5-5.0); Alkaline Phosphatase 49 U/L (39-117); Anion Gap 13 (12-20); Aspartate Amino Transferase 16 U/L (5-31); Bilirubin Total 0.4 mg/dL (0.0-1.0); Blood Urea Nitrogen 11 mg/dL (9-16); Carbon Dioxide 25 mmol/L (22-29); Chloride 105 mmol/L (96-108); Creatinine Clr Calc Pharmacy 159.1; Estimated Glomerular Filt Rate > 60; Glucose Random 91 mg/dL (60-115); Potassium 4.1 mmol/L (3.3-5.1); Sodium 139 mmol/L (135-145); Total Protein 8.1 g/dL (6.5-8.0)
[2024-01-07 13:29] LABS: HCG Quantitative < 2 mIU/mL
[2024-01-07 14:29] LABS: Influenza A PCR NEGATIVE (Negative); Influenza B PCR NEGATIVE (Negative); Resp Syncy Virus RNA Qual PCR NEGATIVE (Negative); SARS COV2 PCR INHOUSE NEGATIVE (Negative)
== END 2024-01-07 20:34 | disposition left against medical advice (07) ==
PROVIDERS: Physician Assistant Medical; Emergency Provider Emergency Medicine
DX: R10.31 Right lower quadrant pain (principal); R10.2 Pelvic and perineal pain; Z79.899 Other long term (current) drug therapy; Z03.818 Encounter for observation for suspected exposure to other biological agents ruled out
CPT/HCPCS: 0241U; 36415; 80053; 83735; 84702; 85025; 99281; 99283

== ENCOUNTER 2024-01-08 08:59 | Emergency (ER) | payer OTHER, SELFPAY ==
[2024-01-08 09:11] VITALS: BP 105/72; PULSE 84; RESP 18; TEMP 36.3; O2SAT 99; BMI 52.2
--- NOTE | 2024-01-08 18:10 | PC.NURSE ---
no answer at 1800 roll call.
== END 2024-01-08 18:23 | disposition left against medical advice (07) ==
LOC: HO.ED 18:22
PROVIDERS: Emergency Provider Emergency Medicine
DX: R10.9 Unspecified abdominal pain (principal); Z53.21 Procedure and treatment not carried out due to patient leaving prior to being seen by health care provider
CPT/HCPCS: 99281

== ENCOUNTER 2024-02-24 23:25 | Emergency (ER) | payer OTHER, SELFPAY ==
--- NOTE | 2024-02-24 23:29 | ECG_ITS ---
Test Reason : CHEXT PX Blood Pressure : / mmHG Vent. Rate : 096 BPM Atrial Rate : 096 BPM P-R Int : 146 ms QRS Dur : 082 ms QT Int : 366 ms P-R-T Axes : 028 037 027 degrees QTc Int : 462 ms Normal sinus rhythm Normal ECG No previous ECGs available Referred By: Generic ED Physician Electronically Signed By:NADER KUMARI MD
[2024-02-24 23:46] VITALS: BP 131/80; PULSE 98; RESP 16; TEMP 36.9; O2SAT 97; BMI 52.7
[2024-02-24 23:49] LABS: MANUAL DIFF FLAG NO
[2024-02-24 23:51] LABS: Basophils Percent Auto 0.4 % (0-2); Eosinophils Absolute Auto 0.1 X10*3/uL (0.0-0.4); Eosinophils Percent Auto 0.5 % (0-4); Hematocrit 37.5 % (37.0-47.0); Hemoglobin 11.9 g/dl (12.0-16.0); Imm Gran Abs Auto 0.04 X10*3/uL (0.00-0.03); Imm Gran Pct Auto 0.4 % (0.0-0.4); Lymphocytes Absolute Auto 1.9 X10*3/uL (1.2-4.9); Lymphocytes Percent Auto 17.2 % (20-40); Mean Corpuscular HGB Conc 31.7 g/dl (31.0-35.0); Mean Corpuscular Hemoglobin 25.3 pg (27.0-33.0); Mean Corpuscular Volume 79.6 fL (80.0-98.0); Mean Platelet Volume 11.2 fL (9.4-12.3); Monocytes Absolute Auto 0.8 X10*3/uL (0.1-1.2); Monocytes Percent Auto 6.9 % (2-11); Neutrophils Absolute Auto 8.4 x10*3/uL (2.0-8.3); Neutrophils Percent Auto 74.6 % (45-73); Platelet Count 294 X10*3/uL (160-400); Red Blood Count 4.71 X10*6/uL (4.20-5.50); Red Cell Distribution Width 15.6 % (11.0-16.0); White Blood Count 11.2 X10*3/uL (4.8-10.8)
[2024-02-25 00:03] LABS: Anion Gap 13 (12-20); Blood Urea Nitrogen 8 mg/dL (9-16); Calcium 9.8 mg/dL (8.4-10.2); Carbon Dioxide 24 mmol/L (22-29); Chloride 108 mmol/L (96-108); Creatinine Clr Calc Pharmacy 143.1; Estimated Glomerular Filt Rate > 60; Glucose Random 131 mg/dL (60-115); Sodium 141 mmol/L (135-145)
[2024-02-25 00:12] LABS: Troponin-I High Sensitivity < 2.7 ng/L (<3.5-17.0)
--- NOTE | 2024-02-25 03:19 | PC.NURSE ---
2nd call no show
== END 2024-02-25 03:19 | disposition left against medical advice (07) ==
PROVIDERS: Emergency Provider Emergency Medicine; PCP Internal Medicine
DX: R07.9 Chest pain, unspecified (principal); Z53.21 Procedure and treatment not carried out due to patient leaving prior to being seen by health care provider
CPT/HCPCS: 36415; 80048; 84484; 85025; 93005; 99281; 99283

== ENCOUNTER → 2024-02-24 23:29 | Outpatient (BNV) | payer OTHER, SELFPAY | PROVIDERS: Emergency Provider Emergency Medicine; PCP Internal Medicine; Visit Provider Internal Medicine Cardiovascular Disease | DX: R07.9 Chest pain, unspecified (principal) | CPT/HCPCS: 93010 ==

== ENCOUNTER → 2024-09-05 09:28 | Outpatient (BNV) | payer OTHER, SELFPAY | PROVIDERS: Visit Provider Radiology Diagnostic Radiology | DX: M54.50 Low back pain, unspecified (principal) | CPT/HCPCS: 72100 ==

== ENCOUNTER 2024-09-05 10:02 | Emergency (ER) | payer OTHER, SELFPAY ==
--- NOTE | ~2024-09-05 | XR_ITS ---
EXAMINATION: XR LUMBOSACRAL SPINE CLINICAL INFORMATION: lower back pain COMPARISON: None available. TECHNIQUE: Three views of the lumbosacral spine. FINDINGS: The vertebral bodies and posterior elements are normal. The disc spaces are preserved and the vertebral alignment is normal. The paraspinal soft tissues are normal. Cholecystectomy clips are present. XR/XR lumbar spine 2-3V IMPRESSION: Normal lumbar spine. Electronically signed by: Rolando Lucero MD 09/05/2024 10:35 AM EDT
[2024-09-05 10:07] VITALS: BP 132/86; PULSE 75; RESP 16; TEMP 36.3; O2SAT 99; BMI 41.2
--- OUTSIDE RECORDS SUMMARY | 2024-09-05 11:19 | XMS_ITS | Data Portability ---
Author Organization [facility]aternal [facility], [facility] (Prof.) Address [address], [address] [place] [address] Assessment No assessment recorded. Plan of Treatment Reminders Order Date Submit Date Provider Last Modified By Organization Details Last Modified Time Details Appointments None record ed. Lab None record ed. Referral None record ed. Procedures None record ed. Surgeries None record ed. Imaging None record ed. Medication Orders None record ed. Patient TargetsNo targets recorded. Patient InstructionsNo instructions recorded. Reason for Referral None Reported. Medical Equipment None Reported. Medications Name Sig Start Date Stop Date Status Note LastModified by Organization Details LastModified Time ferrous sulfate 325 mg (65 mg iron) tablet active Not Available Not Available Not Available Vitals None Recorded Social History None recorded. Functional Status None recorded. Mental Status None recorded. Family History Nothing Reported. Medical History No medical history recorded. Gynecological HistoryNo gynecological history recorded. Obstetrics History GPAL:G 0 P 0 0 0 0 Past Encounters Encounter ID Performer Location Encounter Start Date Encounter Closed Date Diagnosis/Indication Diagnosis SNOMED-CT Code Diagnosis ICD10 Code Diagnosis Note [id number] Noble Abdi MD [address] [address] 03/05/2017 13:42:54 03/05/2017 13:43:22 [id number] Noble Abdi MD [address] [address] 03/05/2017 16:16:38 03/05/2017 16:17:06 [id number] Noble Abdi MD [address] [address] 03/30/2017 13:16:27 03/30/2017 13:16:47 [id number] Noble Abdi MD [address] [address] 05/23/2017 13:44:18 05/23/2017 13:44:35 [id number] Noble Abdi MD [facility] [address] [place] [address] 05/31/2017 13:58:40 05/31/2017 13:58:59 Health Concerns Section Related Observation LastModified by Organization Detai ls LastModified Time None Recorded Concern Status LastModified by Organization Details LastModified Time None Recorded Advance Directives Directive None Recorded Payers Insurance Date Sequence Insurance Name Policy Number Policy Kauffman Covered Member ID Kauffman Member ID Guarantor Name 03/05/2017 1 [place] [facility] Pat Murray- Bar [id number] Pat Murray-Va zquez 06/26/2017 1 [facility] [employer] - HEALTH NET PLAN (MEDICAID HMO) [id number] Pat Murray- Bar [id number] Pat Murray-Va zquez OBGyn Episode No OBEpisode recorded.
--- OUTSIDE RECORDS SUMMARY | 2024-09-05 11:19 | XMS_ITS | Clinical Summary ---
Author Organization [address] Address [address] [place] [phone] Phone Care Team Providers Care Commanding Officer Motorized Squad Name Role Phone Mike Ramirez MD Primary Care Provider [phone] Allergies Active Allergy Reactions Criticality Noted Date Comments Other Wheezing 08/27/2015 Seafood Sob and rash Medications metroNIDAZOLE (METROGEL) 0.75 % (37.5mg/5 gram) vaginal gel 1 full applicator for 5days at bedtime 0 Active PNV,calcium 21-qvzv-tcvhn acid ( Plus, calcium carb,) 27 mg iron- 1 mg tablet Take 1 Tab by mouth daily. 0 Active Active Problems Problem Noted Date Diagnosed Date GBS (group B Streptococcus c arrier), +RV culture, currently 05/31/2017 Overview (02/11/2024): Treat IP Morbid obesity ([facility] V24, [facility] V28) 2015 Overview (02/11/2024): Anesthesia consult scheduled for 05/18/17 Immunizations Name Administration Dates Next Due Influenza Quadravalent, MDCK , 0.5ml, preservative free (Flucelvax) 6mo and older 12/29/2016 Tdap Tetanus diptheria acell ular pertussis (Boostrix; Adacel) 7yo and older 04/12/2017 Surgical History Surgery Date Site/Laterality Comments CHOLECYSTECTOMY PROCEDURE: HISTORICAL CHOLECYSTECTOMY NEPHRECTOMY PROCEDURE: HISTORICAL NEPHRECTOMY Medical History Medical History Date Comments Morbid obesity ([facility] V24, [facility] V28) DX:Morbid obesity (HCC) Family history of breast can cer in first degree relative 08/27/2015 DX:Family history of breast cancer in first degree relative Anemia DX:Anemia Family History Medical History Relation Name Comments Hypertension Father Breast cancer Paternal Grandmother Hypertension Paternal Grandmother Relation Name Status Comments Brother Alive Father Alive htn Mother Alive Paternal Grandmother Alive Sister Alive Social History Tobacco Use Types Packs/Day Years Used Date Smoking Tobacco: Never Smokeless Tobacco: Never Alcohol Use Standard Drinks/Week Comments No 0 (1 standard drink = 0.6 oz pur e alcohol) Comments Unknown Sex and Gender Information Value Date Recorded Sex Assigned at Not on file Legal Sex Female 3:50 AM EST Gender Identity Not on file Sexual Orientation Not on file Obstetrics History Plan of Treatment Health Maintenance Due Date Last Done Comments Hepatitis B Vaccines (1 of 3 - 19+ 3-dose series) 2013 Cervical Cancer Screening: P ap Smear 12/01/2019 11/30/2016, 11/30/2016 COVID-19 Vaccine ( - 2023-2 5 season) 2023 Cholesterol Screening (Lipid Panel) 02/11/2024 08/27/2015 Depression Screening 02/11/2024 Social Influencers of Health Screening 02/11/2024 Influenza Vaccine (#1) 2024 12/29/2016 DTaP,Tdap,and Td Vaccines (2 - Td or Tdap) 04/12/2027 04/12/2017 HIV Screening Completed 11/24/2016 Hepatitis C Screening Completed 11/24/2016 HIB Vaccines Aged Out No longer eligi ble based on patient's age to complete this topic HPV Vaccines Aged Out No longer eligi ble based on patient's age to complete this topic Hepatitis A Vaccines Aged Out No long er eligible based on patient's age to complete this topic IPV Vaccines Aged Out No longer eligi ble based on patient's age to complete this topic MMR Vaccines Aged Out No longer eligi ble based on patient's age to complete this topic Meningococcal ACWY Vaccine Aged Out N o longer eligible based on patient's age to complete this topic Meningococcal B Vaccine Aged Out No l onger eligible based on patient's age to complete this topic Pneumococcal Vaccine: Pediatrics (0 to 5 Years) and At-Risk Patients (6 to 49 Years) Aged Out No longer eligible b ased on patient's age to complete this topic RSV Immunization Patients Under 20 months Aged Out No longer eligible b ased on patient's age to complete this topic Varicella Vaccines Aged Out No longer eligible based on patient's age to complete this topic Procedures Procedure Name Priority Date/Time Associated Diagnosis Comments HPV Routine 11/30/2016 HEPATITIS C SCREENING Routine 11/24/2016 HIV SCREENING Routine 11/24/2016 LIPID PANEL Routine 08/27/2015 from Last 3 Months or Most Recently Relevant to Health Maintenance Results * Cervical Cancer Screening: HPV (11/30/2016) Pathologist [facility] Cervical Cancer Screening: HPV No Interpretation , Abstracted [facility] Provider HEALTH MAINTENANCE Final Result * HIV Screening (11/24/2016) Pathologist [facility] HIV Screening Abstracted [facility] Provider HEALTH MAINTENANCE Final Result * Hepatitis C Screening (11/24/2016) Pathologist [facility] Hepatitis C Screening Abstracted [facility] Provider HEALTH MAINTENANCE Final Result * (ABNORMAL) Lipid panel (08/27/2015) Pathologist [facility] LDL/HDL Ratio 5(A) 0 - 4 Triglycerides 204(A) 0 - 150 mg/dL Cholesterol 180 0 - 200 mg/dL HDL 37(A) >=40 mg/dL LDL Cholesterol 103(A) 0 - 100 mg/dL Blood Venous blood specimen / Unknown Historical Provider LAB BLOOD ORDERABLES Kiki l Result from Last 3 Months or Most Recently Relevant to Health Maintenance Care Teams Commanding Officer Motorized Squad Relationship Specialty Start Date End Date Mike Ramirez MD [address] [place] [address] PCP - General 09/19/23
--- OUTSIDE RECORDS SUMMARY | 2024-09-05 11:19 | XMS_ITS | Encounter Summary ---
Author Organization [facility] Address [address] [place] [phone] Phone Care Team Providers Care Inside Sales Manager Name Role Phone Carmen Puentes MD Primary Care Provider Unavailabl e Encounter Details Date Type Department Care Team (Late st Contact Info) Description 10/28/2013 Documentation [facility] [address] [place] [address] Family Medicine, Physician [facility] [address] [place], [place] [id number] Social History Tobacco Use Types Packs/Day Years Used Date Smoking Tobacco: Never Assessed Comments Unknown Sex and Gender Information Value Date Recorded Sex Assigned at Not on file Legal Sex Female 4:55 PM EDT Gender Identity Not on file Sexual Orientation Not on file documented as of this encounter Plan of Treatment Not on file documented as of this encounter Visit Diagnoses Not on filedocumented in this encounter Care Teams Inside Sales Manager Relationship Specialty Start Date End Date Carmen Puentes MD PCP - General 10/06/16 documented as of this encounter
[2024-09-05 11:44] LABS: Appearance Urine Cloudy; Glucose Urine UA Negative (Negative); PH 5.5 (5.0-9.0); Specific Gravity - Urine 1.025 (1.005-1.025); UMIC TRIGGER UACC YES
[2024-09-05 11:46] LABS: UPreg QC Valid YES
[2024-09-05 11:58] LABS: UACC Culture Trigger YES
[2024-09-05 12:00] VITALS: BP 134/80; PULSE 75; RESP 16; TEMP 36.3; O2SAT 99
--- NOTE | 2024-09-05 12:10 | ED_ITS ---
HPI - General Adult General Chief complaint: Back Pain/Injury Stated complaint: Low Back Pain No Injury Time Seen by Provider: 09/05/24 10:33 Source: patient Mode of arrival: ambulatory Limitations: no limitations History of Present Illness ED Provider: Kathi Cantu HPI narrative: 29 yold female with no pmh presents to the ED for left lower back pain for the past couple of days without any abdominal pain, dysuria, hematuria, fever, or chills. Patient states no recent trauma, fever, or chills. Related Data Previous Rx's ?Medication ?Instructions ?Recorded penicillin V potassium 500 mg 500 mg PO BID 10 days #2 0 tabs 05/02/23 tablet prednisone 20 mg tablet 40 mg (2 x 20 mg) PO DAILY # 10 tabs 09/04/23 ibuprofen 600 mg tablet 600 mg PO Q8H PRN pain #20 t abs 09/27/23 diclofenac sodium 1 % topical gel 2 g topical QID #100 grams 10/15/23 naproxen 500 mg tablet 500 mg PO BID PRN pain 10 da ys #20 10/15/23 tabs cephalexin 500 mg capsule 500 mg PO QID #28 caps 09/05 naproxen 500 mg tablet 500 mg PO BID PRN pain #14 t abs 09/05/24 Allergies Allergy/AdvReac Type Severity Reaction Status Date / Time seafood AdvReac Mild Rash Verified 09/05/24 10:08 Review of Systems Review of Systems: left lower back pain Yes all other systems are reviewed and are negative PMFSH Social History Social History Advance Directives: No Advance Directives Information Provided: Yes Do you have a plan to hurt others: No Plan Physical Exam ED Vital Signs: Vital Signs - 24 hr 09/05/24 10:07 Temperature 97.4 F Pulse Rate 75 Respiratory Rate 16 Blood Pressure 132/86 Pulse Oximetry 99 Oxygen Delivery Method Room Air BMI result Body Mass Index 41.2 Const General: cooperative, healthy appearing, comfortable, no acute distress, well developed, alert, awake and Physically active Orientation/consciousness: patient oriented x3 HENMT Head: Yes normal to inspection, Yes No palpable skull fracture present, Yes normocephalic, Yes atraumatic and No abrasion Eyes General: appearance normal, both eyes and all related structures Neck Neck: Yes normal visual inspection, Yes full ROM, Yes no lymphadenopathy, Yes no meningeal signs, Yes trachea midline, Yes supple, No anterior neck swelling and No tender Chest Chest palpation & inspection: normal inspection of the chest and normal palpation of entire chest wall Resp Effort & Inspection: normal respiratory effort and able to speak in complete sentences Auscultation: clear to auscultation bilaterally Cardio Jugular venous distension: no JVD Heart sounds: S1 normal heart sound present and S2 normal heart sound present GI Inspection: Yes normal to inspection Palpation (GI): Soft to palpation, not firm, nontender, no guarding and not rigid General: Yes no CVA tenderness Back/Spine/Pelvis Back: no CVA tenderness and back tenderness (left lumbar) Skin General skin exam: no rashes or lesions noted, elasticity normal and turgor normal Neuro General: patient oriented x3, gait normal, tone normal, moves all extremities, Normal light touch and pain sensation, no meningeal signs, no focal motor deficits, CN's II-XI intact bilaterally and normal sensation to monofilament Extrem General: Yes normal to inspection, Yes full ROM and Yes capillary refill normal Psych Appearance: grossly normal, well kempt and not disheveled Medical Decision Making Medical Decision Making MDM Narrative: 29-year-old female presents to ED for left lower back pain without any trauma dysuria hematuria nausea vomiting or abdominal pain. Lumbar spine x-ray normal. UA shows UTI. Patient will be discharged with antibiotics. Not suspecting s epsis, pyelonephritis, kidney stone, cauda equinus syndrome, or epidural abscess. Not suspecting osteomyelitis. Recent denies any history of IV drug use or urinary/bowel incontinence. Patient explained worrisome signs and informed to return to the ED immediately Differential Diagnosis Differential Diagnoses: The differential diagnosis associated with the presentation includes (Fracture, dislocation, do UTI, pyelonephritis) Admission/Observation Consideration of admission/observation: Escalation of care including admission/observation considered Lab Data [facility] Lab Attestation statement: I reviewed the patient's lab results. Labs: Lab Results 09/05/24 Range/Units 11:26 Urine Color Yellow Urine Appearance Cloudy Urine pH 5.5 (5.0-9.0) Ur Specific [place] 1.025 (1.005-1.025) Urine Protein Negative (Neg-Trace) mg/dL Urine Glucose (UA) Negative (Negative) mg/dL Urine Ketones Negative (Negative) mg/dL Urine Blood Negative (Negative) Urine Nitrite Negative (Negative) Ur Leukocyte Esterase Small (1+) H (Negative) Urine RBC 0-2 (0-2) /HPF Urine WBC 21-50 H (0-5) /HPF Ur Squamous Epith Cells >20 (0-2) /HPF Urine Bacteria 4+ (None Seen) Hyaline Casts 0-2 (0-2) /LPF Urine Test NEGATIVE (NEGATIVE) Independent Interpretation I performed an independent interpretation of an: Plain X-Ray Radiology Impression Discussion of test interpretation with radiology: I have reviewed the radiologist's reading. Independent Historian Clinical information obtained from an independent historian. History obtained from or confirmed by: Other (Patient) Prescription Management I considered prescription management with: Pain Medication and Antibiotic Discharge Plan Discharge Clinical Impression: Back pain, UTI (urinary tract infection) Patient Disposition: Home, Self-Care Instructions: Urinary Tract Infection in Women (ED), Back Pain (ED) Additional Instructions: Recommend follow up with primary care provider. Return to the ED for any abdominal pain, nausea, vomiting, fever, chills, worsening back pain, paralysis weakness on lower extremity, urinary/bowel incontinence, or any other concerning symptoms. EXAMINATION: XR LUMBOSACRAL SPINE CLINICAL INFORMATION: lower back pain COMPARISON: None available. TECHNIQUE: Three views of the lumbosacral spine. FINDINGS: The vertebral bodies and posterior elements are normal. The disc spaces are preserved and the vertebral alignment is normal. The paraspinal soft tissues are normal. Cholecystectomy clips are present. XR/XR lumbar spine 2-3V IMPRESSION: Normal lumbar spine. Electronically signed by: Rolando Lucero MD 09/05/2024 10:35 AM EDT Dictated By: Rolando Lucero MD Signed By: <Electronically signed by Rolando Lucero MD in OV> 09/05/24 1035 Prescriptions: New naproxen 500 mg tablet 500 mg PO BID PRN (Reason: pain) Qty: 14 0RF cephalexin 500 mg capsule 500 mg PO QID Qty: 28 0RF No Action penicillin V potassium 500 mg tablet 500 mg PO BID 10 Days Qty: 20 0RF prednisone 20 mg tablet 40 mg PO DAILY Qty: 10 0RF ibuprofen 600 mg tablet 600 mg PO Q8H PRN (Reason: pain) Qty: 20 0RF naproxen 500 mg tablet 500 mg PO BID PRN (Reason: pain) 10 Days Qty: 20 0RF diclofenac sodium 1 % gel 2 g topical QID Qty: 100 0RF Rx Instructions: apply to single elbow, wrist or hand; for hand includes palm/fingers/back of hand Stand Alone Forms: Work/School Release Interventions: ED Discharge Assessment Last Done: 09/05/24 12:29 Discharge Date/Time: 09/05/24 12:37 Print Language: Tamazight
[2024-09-05 12:29] VITALS: BP 132/86; PULSE 75; RESP 16; TEMP 36.3; O2SAT 99
== END 2024-09-05 12:37 | disposition home or self-care (01) ==
PROVIDERS: Physician Assistant; Emergency Provider Emergency Medicine
DX: N39.0 Urinary tract infection, site not specified (principal); M54.50 Low back pain, unspecified
CPT/HCPCS: 72100; 81001; 81025; 87086; 99283